=== PATIENT | female | born 1980 | race Caucasian/White ===

== ENCOUNTER 2017-05-09 23:09 | Emergency (ER) | payer MEDICARE, MEDICAID ==
[~2017-05-09] VITALS: Ht 152.4 cm; Wt 36.4 kg
[2017-05-09] MEDS ORDERED: TETRABENAZINE12.5 MG PO (23:17)
[2017-05-09] MEDS ORDERED: ZOLOFT 100MG100 MG (23:18)
[2017-05-09] MEDS ORDERED: ATIVAN1 M1 PO (23:18)
[2017-05-09] MEDS ORDERED: LAMICTAL 25MG T25 MG PO (23:20)
[2017-05-10 02:54] VITALS: BP 108/66
== END 2017-05-10 02:54 | disposition home or self-care (01) ==
LOC: ED 23:09
DX: G10 Huntington's disease (principal); Z91.81 History of falling; T42.6X6A Underdosing of other antiepileptic and sedative-hypnotic drugs, initial encounter; Z91.128 Patient's intentional underdosing of medication regimen for other reason
CPT/HCPCS: J2060

== ENCOUNTER 2017-10-31 12:36 | Emergency (ER) | payer MEDICARE, MEDICAID ==
[~2017-10-31] VITALS: Wt 38.1 kg
[~2017-10-31 12:36] MED LIST: ATIVAN1 M1 PO; LAMICTAL 25MG T25 MG PO; TETRABENAZINE12.5 MG PO; ZOLOFT 100MG100 MG
[2017-10-31] MEDS ORDERED: AUSTEDO9 MG PO (13:11)
[2017-10-31] MEDS ORDERED: MIRTAZAPINE30 MG PO (13:11)
[2017-10-31] MEDS ORDERED: LORAZEPAM0.5 M1 PO (13:11)
[2017-10-31] MEDS ORDERED: PROTONIX TR40 M1 PO (13:12)
[2017-10-31] MEDS ORDERED: SERTRALINE HYD100 MG PO (13:12)
[2017-10-31] MEDS ORDERED: QUETIAPINE FUMA25 M2 PO (13:12)
[2017-10-31 14:07] LABS: EOS # 0.2 (0.04-0.40); EOS % 2.5 % (1.0-5.0); HEMATOCRIT 37.5 % (37.0-47.0); HEMOGLOBIN 12.7 g/dL (12.5-16.0); LYMPH# 2.3 (1.50-4.00); MEAN CELL VOLUME 87 fl (78-100); MEAN CORPUSCULAR HEMOGLOBIN 30 pg (27-31); MEAN CORPUSCULAR HGB CONC 34 g/dL (33-37); MEAN PLATELET VOLUME 10.7 fl (7.4-10.4); MONO # 0.6 (0.20-0.80); NEU # 4.8 (1.40-6.50); PLATELET COUNT 235 K/mm3 (130-400); RED BLOOD COUNT 4.29 M/mm3 (4.10-5.30); RED CELL DISTRIBUTION WIDTH 13.1 % (11.5-14.5)
[2017-10-31 14:19] LABS: ALBUMIN 4.1 g/dL (3.5-5.0); BUN/CREATININE RATIO 23.5 (6.0-26.0); CALCIUM 9.1 mg/dL (8.4-10.2); POTASSIUM 3.5 mmol/L (3.6-5.0); TOTAL BILIRUBIN 0.5 mg/dL (0.2-1.3); TOTAL PROTEIN 7.1 g/dL (6.3-8.2)
[2017-10-31 14:32] LABS: PH-URINE 6.5 (5.0 - 8.0); URINE APPEARANCE CLEAR; URINE BILIRUBIN NEGATIVE (NEGATIVE); URINE BLOOD NEGATIVE (NEGATIVE); URINE COLOR YELLOW; URINE GLUCOSE NEGATIVE (NEGATIVE); URINE KETONE NEGATIVE (NEGATIVE); URINE LEUKOCYTE ESTERASE NEGATIVE (NEGATIVE); URINE NITRATE NEGATIVE (NEGATIVE); URINE PROTEIN(semi-quant) TRACE mg/dL (NEGATIVE); URINE UROBILINOGEN NORMAL (NORMAL)
[2017-10-31] MEDS ORDERED: RT ALBUTEROL CC18 GM IH (16:05)
[2017-10-31] MEDS ORDERED: SUNMARK S NS (16:05)
[2017-10-31 16:20] VITALS: BP 188/87
== END 2017-10-31 16:20 | disposition home or self-care (01) ==
LOC: ED 12:36
PROVIDERS: Physician Assistant
DX: R10.9 Unspecified abdominal pain (principal); G10 Huntington's disease; F32.9 Major depressive disorder, single episode, unspecified; R63.6 Underweight; F17.210 Nicotine dependence, cigarettes, uncomplicated; R19.7 Diarrhea, unspecified; E87.6 Hypokalemia; R06.00 Dyspnea, unspecified; R09.89 Other specified symptoms and signs involving the circulatory and respiratory systems

== ENCOUNTER 2017-11-18 12:30 | Emergency (ER) | payer MEDICARE, MEDICAID ==
[~2017-11-18] VITALS: Wt 40.4 kg
[~2017-11-18 12:30] MED LIST changes: +AUSTEDO9 MG PO; +LORAZEPAM0.5 M1 PO; +MIRTAZAPINE30 MG PO; +PROTONIX TR40 M1 PO; +QUETIAPINE FUMA25 M2 PO; +RT ALBUTEROL CC18 GM IH; +SERTRALINE HYD100 MG PO; +SUNMARK S NS
[2017-11-18] MEDS ORDERED: HYDROCODON-ACET15 ML PO (12:45)
[2017-11-18] MEDS ORDERED: ATIVAN0.5 MG PO (12:46)
[2017-11-18] MEDS ORDERED: AUSTEDO9 MG PO (12:47)
[2017-11-18] MEDS ORDERED: ZOFRAN4 M2 PO (12:48)
[2017-11-18 13:28] LABS: HEMATOCRIT 34.9 % (37.0-47.0); HEMOGLOBIN 11.6 g/dL (12.5-16.0); MEAN CELL VOLUME 89 fl (78-100); MEAN CORPUSCULAR HEMOGLOBIN 30 pg (27-31); MEAN CORPUSCULAR HGB CONC 33 g/dL (33-37); MEAN PLATELET VOLUME 11.3 fl (7.4-10.4); PLATELET COUNT 215 K/mm3 (130-400); RED BLOOD COUNT 3.93 M/mm3 (4.10-5.30); RED CELL DISTRIBUTION WIDTH 13.7 % (11.5-14.5); WHITE BLOOD COUNT 6.6 K/mm3 (4.8-10.8)
[2017-11-18 13:43] LABS: BUN/CREATININE RATIO 18.9 (6.0-26.0); CALCIUM 9.5 mg/dL (8.4-10.2); POTASSIUM 3.8 mmol/L (3.6-5.0); TOTAL BILIRUBIN 0.7 mg/dL (0.2-1.3)
[2017-11-18 13:44] LABS: BAND 1 % (0-10); LYMPHOCYTE 6 % (20-51); MONOCYTE 7 % (3-10); NEUTROPHILS 86 % (42-75)
[2017-11-18 13:54] LABS: URINE APPEARANCE CLEAR; URINE COLOR YELLOW; URINE PROTEIN(semi-quant) NEGATIVE (NEGATIVE)
[2017-11-18 13:55] LABS: URINE BILIRUBIN NEGATIVE (NEGATIVE); URINE BLOOD NEGATIVE (NEGATIVE); URINE GLUCOSE NEGATIVE (NEGATIVE); URINE KETONE NEGATIVE (NEGATIVE); URINE LEUKOCYTE ESTERASE NEGATIVE (NEGATIVE); URINE NITRATE NEGATIVE (NEGATIVE); URINE UROBILINOGEN NORMAL (NORMAL); URINE WBC 0-1 /hpf (0-3)
[2017-11-18] MEDS ORDERED: ZOFRAN ODT4 MG PO (15:19)
[2017-11-18] MEDS ORDERED: AMOXIL500 M1 PO (15:19)
[2017-11-18] MEDS ORDERED: TYLENOL 325MG325 MG PO (15:19)
[2017-11-18 15:38] VITALS: BP 123/47
== END 2017-11-18 16:17 | disposition home or self-care (01) ==
LOC: ED 12:30
PROVIDERS: Physician Assistant
DX: K52.9 Noninfective gastroenteritis and colitis, unspecified (principal); F41.9 Anxiety disorder, unspecified; G10 Huntington's disease; F32.9 Major depressive disorder, single episode, unspecified; R63.6 Underweight; K08.9 Disorder of teeth and supporting structures, unspecified
CPT/HCPCS: A4353; J2405; J7120

== ENCOUNTER 2017-11-30 09:13 | Emergency (ER) | payer MEDICARE, MEDICAID ==
[~2017-11-30 09:13] MED LIST changes: +AMOXIL500 M1 PO; +ATIVAN0.5 MG PO; +HYDROCODON-ACET15 ML PO; +TYLENOL 325MG325 MG PO; +ZOFRAN ODT4 MG PO; +ZOFRAN4 M2 PO
[2017-11-30] MEDS ORDERED: ZOLOFT 100MG100 MG PO (10:54)
[2017-11-30] MEDS ORDERED: SEROQUEL 2525 MG/TAB PO (10:55)
[2017-11-30] MEDS ORDERED: CHILD IBUP100 MG/5 M PO (10:56)
[2017-11-30] MEDS ORDERED: BENADRYL PO (10:56)
[2017-11-30] MEDS ORDERED: ALBUTEROL S5 MG/1 ML IH (11:02)
[2017-11-30] MEDS ORDERED: RT ALBUTEROL CC18 GM IH (11:03)
[2017-11-30 12:58] VITALS: BP 128/60
== END 2017-11-30 13:07 | disposition home or self-care (01) ==
LOC: ED 09:13
DX: S01.81XA Laceration without foreign body of other part of head, initial encounter (principal); W18.30XA Fall on same level, unspecified, initial encounter; Y92.009 Unspecified place in unspecified non-institutional (private) residence as the place of occurrence of the external cause; G10 Huntington's disease; K08.89 Other specified disorders of teeth and supporting structures; S00.212A Abrasion of left eyelid and periocular area, initial encounter; S00.12XA Contusion of left eyelid and periocular area, initial encounter; K21.9 Gastro-esophageal reflux disease without esophagitis; Z23 Encounter for immunization; R45.86 Emotional lability
CPT/HCPCS: 90715; A4550; J2060

== ENCOUNTER 2018-04-22 01:10 | Emergency (ER) | payer MEDICARE, MEDICAID ==
[~2018-04-22] VITALS: Ht 154.9 cm; Wt 40.9 kg
[~2018-04-22 01:10] MED LIST changes: +ALBUTEROL S5 MG/1 ML IH; +BENADRYL PO; +CHILD IBUP100 MG/5 M PO; +SEROQUEL 2525 MG/TAB PO; +ZOLOFT 100MG100 MG PO
[2018-04-22] MEDS ORDERED: DULOXETINE60 MG PO (01:23)
[2018-04-22] MEDS ORDERED: MIRTAZAPINE30 M1 PO (01:30)
[2018-04-22 02:37] VITALS: BP 111/68
== END 2018-04-22 02:37 | disposition home or self-care (01) ==
LOC: ED 01:10
DX: R14.0 Abdominal distension (gaseous) (principal); R10.84 Generalized abdominal pain; G10 Huntington's disease; F17.200 Nicotine dependence, unspecified, uncomplicated

== ENCOUNTER 2018-06-19 18:58 | Emergency (ER) | payer MEDICARE, MEDICAID ==
[~2018-06-19 18:58] MED LIST changes: +DULOXETINE60 MG PO; +MIRTAZAPINE30 M1 PO
[2018-06-19 20:03] LABS: EOS # 0.2 (0.04-0.40); EOS % 2.4 % (1.0-5.0); HEMATOCRIT 38.2 % (37.0-47.0); HEMOGLOBIN 12.9 g/dL (12.5-16.0); LYMPH# 2.8 (1.50-4.00); MEAN CELL VOLUME 89 fl (78-100); MEAN CORPUSCULAR HEMOGLOBIN 30 pg (27-31); MEAN CORPUSCULAR HGB CONC 34 g/dL (33-37); MEAN PLATELET VOLUME 11.7 fl (7.4-10.4); MONO # 0.6 (0.20-0.80); NEU # 4.5 (1.40-6.50); PLATELET COUNT 193 K/mm3 (130-400); RED BLOOD COUNT 4.28 M/mm3 (4.10-5.30); RED CELL DISTRIBUTION WIDTH 12.6 % (11.5-14.5); WHITE BLOOD COUNT 8.2 K/mm3 (4.8-10.8)
[2018-06-19 20:06] LABS: BUN/CREATININE RATIO 42.4 (6.0-26.0); CALCIUM 8.8 mg/dL (8.4-10.2); POTASSIUM 3.4 mmol/L (3.6-5.0); TOTAL BILIRUBIN 0.2 mg/dL (0.2-1.3); TOTAL PROTEIN 7.2 g/dL (6.3-8.2)
[2018-06-19] MEDS ORDERED: CETIRIZINE HCL10 MG PO (20:53)
[2018-06-19] MEDS ORDERED: FLUTICASON0.05 MG/AC NS (20:53)
[2018-06-19] MEDS ORDERED: PRILOSEC 20MG20 MG PO (21:10)
[2018-06-19] MEDS ORDERED: ATIVAN0.5 MG PO ×2 (21:10→21:11)
[2018-06-19] MEDS ORDERED: AUSTEDO9 MG PO (21:10)
[2018-06-19] MEDS ORDERED: CYMBALTA60 M1 PO (21:11)
[2018-06-19] MEDS ORDERED: REMERON15 MG PO (21:11)
[2018-06-19] MEDS ORDERED: ABILIFY5 MG PO (21:12)
[2018-06-19] MEDS ORDERED: GAS RELIEF80 MG PO (21:13)
[2018-06-19] MEDS ORDERED: ZOFRAN4 M2 PO (21:15)
[2018-06-19] MEDS ORDERED: CHILDREN'S160 MG/15 PO (21:16)
[2018-06-19] MEDS ORDERED: BENADRYL ALLERG25 M1 PO (21:16)
[2018-06-19] MEDS ORDERED: ALBUTEROL1.25 MG/3 IH (21:17)
[2018-06-19] MEDS ORDERED: RT ALBUTEROL CC18 GM IH (21:17)
[2018-06-19] MEDS ORDERED: SODIUM CHLORIDE NAS (21:18)
[2018-06-19] MEDS ORDERED: MOTRIN SUSP20 MG/ML PO (21:19)
[2018-06-19] MEDS ORDERED: COLACE100 M1 PO (21:20)
[2018-06-19] MEDS ORDERED: HYDROCODONE-AC118 ML PO (21:20)
[2018-06-19] MEDS ORDERED: MIRALAX17 GM PO (21:21)
[2018-06-19 22:25] VITALS: BP 142/76
== END 2018-06-19 22:25 | disposition home or self-care (01) ==
LOC: ED 18:58
PROVIDERS: Family Medicine
DX: J30.2 Other seasonal allergic rhinitis (principal); G10 Huntington's disease; Z79.899 Other long term (current) drug therapy

== ENCOUNTER 2018-11-18 18:45 | Emergency (ER) | payer MEDICARE, MEDICAID ==
[~2018-11-18 18:45] MED LIST changes: +ABILIFY5 MG PO; +ALBUTEROL1.25 MG/3 IH; +BENADRYL ALLERG25 M1 PO; +CETIRIZINE HCL10 MG PO; +CHILDREN'S160 MG/15 PO; +COLACE100 M1 PO; +CYMBALTA60 M1 PO; +FLUTICASON0.05 MG/AC NS; +GAS RELIEF80 MG PO; +HYDROCODONE-AC118 ML PO; +MIRALAX17 GM PO; +MOTRIN SUSP20 MG/ML PO; +PRILOSEC 20MG20 MG PO; +REMERON15 MG PO; +SODIUM CHLORIDE NAS
[2018-11-18 19:53] LABS: EOS # 0.4 (0.04-0.40); EOS % 4.9 % (1.0-5.0); HEMATOCRIT 35.7 % (37.0-47.0); HEMOGLOBIN 11.4 g/dL (12.5-16.0); LYMPH# 2.2 (1.50-4.00); MEAN CELL VOLUME 94 fl (78-100); MEAN CORPUSCULAR HEMOGLOBIN 30 pg (27-31); MEAN CORPUSCULAR HGB CONC 32 g/dL (33-37); MEAN PLATELET VOLUME 11.1 fl (7.4-10.4); MONO # 0.7 (0.20-0.80); NEU # 4.3 (1.40-6.50); PLATELET COUNT 292 K/mm3 (130-400); RED BLOOD COUNT 3.81 M/mm3 (4.10-5.30); RED CELL DISTRIBUTION WIDTH 12.5 % (11.5-14.5); WHITE BLOOD COUNT 7.5 K/mm3 (4.8-10.8)
[2018-11-18] MEDS ORDERED: CLINDAMYCIN 300MG PO (20:03)
[2018-11-18] MEDS ORDERED: CHANTIX 1MG1 MG PO (20:06)
[2018-11-18 20:09] LABS: ALBUMIN 3.7 g/dL (3.5-5.0); CALCIUM 9.4 mg/dL (8.4-10.2); TOTAL BILIRUBIN 0.3 mg/dL (0.2-1.3); TOTAL PROTEIN 6.7 g/dL (6.3-8.2)
[2018-11-18 21:56] LABS: URINE APPEARANCE HAZY; URINE COLOR YELLOW
[2018-11-18 22:01] LABS: URINE BILIRUBIN NEGATIVE (NEGATIVE); URINE BLOOD NEGATIVE (NEGATIVE); URINE GLUCOSE NEGATIVE (NEGATIVE); URINE KETONE NEGATIVE (NEGATIVE); URINE LEUKOCYTE ESTERASE TRACE (NEGATIVE); URINE NITRATE NEGATIVE (NEGATIVE); URINE PROTEIN(semi-quant) TRACE mg/dL (NEGATIVE); URINE UROBILINOGEN NORMAL (NORMAL)
[2018-11-18 23:10] VITALS: BP 156/95
== END 2018-11-18 23:10 | disposition home or self-care (01) ==
LOC: ED 18:45
PROVIDERS: Physician Assistant
DX: E86.0 Dehydration (principal); K04.7 Periapical abscess without sinus; G10 Huntington's disease; Z87.891 Personal history of nicotine dependence; Z79.899 Other long term (current) drug therapy
CPT/HCPCS: J7030

== ENCOUNTER 2018-12-20 06:07 | Emergency (ER) | payer MEDICARE, MEDICAID ==
[~2018-12-20 06:07] MED LIST changes: +CHANTIX 1MG1 MG PO; +CLINDAMYCIN 300MG PO
[2018-12-20 06:08] VITALS: BP 122/70
[2018-12-20] MEDS ORDERED: NORCO 325 MG-51 TA1 PO (07:32)
== END 2018-12-20 09:15 | disposition home or self-care (01) ==
LOC: ED 06:07
DX: M54.5 Low back pain (principal); G10 Huntington's disease; Z87.891 Personal history of nicotine dependence

== ENCOUNTER 2019-02-07 14:28 | Emergency (ER) | payer MEDICARE, MEDICAID ==
[~2019-02-07] VITALS: Wt 40.0 kg
[~2019-02-07 14:28] MED LIST changes: +NORCO 325 MG-51 TA1 PO
[2019-02-07 14:29] VITALS: BP 118/83
== END 2019-02-07 16:09 | disposition home or self-care (01) ==
LOC: ED 14:28
DX: S01.01XA Laceration without foreign body of scalp, initial encounter (principal); S40.219A Abrasion of unspecified shoulder, initial encounter; G10 Huntington's disease; F17.210 Nicotine dependence, cigarettes, uncomplicated; Z23 Encounter for immunization; W01.190A Fall on same level from slipping, tripping and stumbling with subsequent striking against furniture, initial encounter; Y92.009 Unspecified place in unspecified non-institutional (private) residence as the place of occurrence of the external cause
CPT/HCPCS: 90714

== ENCOUNTER → 2019-03-08 | Outpatient (CLI) | payer MEDICARE, MEDICAID ==
[2019-02-07 14:29] VITALS: BP 118/83
== END ==
LOC: RAD 07:27
DX: R13.11 Dysphagia, oral phase (principal); R05 Cough; G10 Huntington's disease

== ENCOUNTER 2020-03-19 20:20 | Emergency (ER) | payer MEDICARE, MEDICAID ==
[2020-03-19] MEDS ORDERED: ZYRTEC10 M3 PO (20:31)
[2020-03-19] MEDS ORDERED: ZOFRAN4 M2 PO (20:32)
[2020-03-19] MEDS ORDERED: HYDROCODON-ACET15 ML PO (20:34)
[2020-03-19 21:30] VITALS: BP 125/78
== END 2020-03-19 21:30 | disposition home or self-care (01) ==
LOC: ED 20:20
DX: S01.81XA Laceration without foreign body of other part of head, initial encounter (principal); G10 Huntington's disease; W19.XXXA Unspecified fall, initial encounter; Y92.009 Unspecified place in unspecified non-institutional (private) residence as the place of occurrence of the external cause

== ENCOUNTER 2020-06-22 12:13 | Emergency (ER) | payer MEDICARE, MEDICAID ==
[~2020-06-22] VITALS: Ht 152.4 cm; Wt 0.1 kg
[~2020-06-22 12:13] MED LIST changes: +ZYRTEC10 M3 PO
[2020-06-22 12:55] LABS: HEMATOCRIT 43.3 % (37.0-47.0); HEMOGLOBIN 13.2 g/dL (12.5-16.0); MEAN CELL VOLUME 91 fl (78-100); MEAN CORPUSCULAR HEMOGLOBIN 28 pg (27-31); MEAN CORPUSCULAR HGB CONC 31 g/dL (33-37); MEAN PLATELET VOLUME 11.2 fl (7.4-10.4); PLATELET COUNT 336 K/mm3 (130-400); RED BLOOD COUNT 4.77 M/mm3 (4.10-5.30); RED CELL DISTRIBUTION WIDTH 15.7 % (11.5-14.5); WHITE BLOOD COUNT 13.3 K/mm3 (4.8-10.8)
[2020-06-22 13:05] LABS: BAND 1 % (0-10); LYMPHOCYTE 10 % (20-51); MONOCYTE 6 % (3-10); NEUTROPHILS 84 % (42-75); POTASSIUM 4.5 mmol/L (3.5-5.1)
[2020-06-22 13:07] LABS: CALCIUM 9.6 mg/dL (8.3-10.5)
[2020-06-22 13:08] LABS: TOTAL PROTEIN 8.4 g/dL (6.4-8.3)
[2020-06-22 13:10] LABS: TOTAL BILIRUBIN 0.8 mg/dL (0.2-1.2)
[2020-06-22 13:40] LABS: LIPASE 11 U/L (8-78)
[2020-06-22 13:44] LABS: URINE APPEARANCE HAZY; URINE COLOR AMBER
[2020-06-22 13:45] LABS: URINE BILIRUBIN NEGATIVE (NEGATIVE); URINE BLOOD 50 ery/uL (NEGATIVE); URINE GLUCOSE NEGATIVE (NEGATIVE); URINE KETONE 2+ (NEGATIVE); URINE LEUKOCYTE ESTERASE 1+ (NEGATIVE); URINE NITRATE POSITIVE (NEGATIVE); URINE PROTEIN(semi-quant) 1+ mg/dL (NEGATIVE); URINE UROBILINOGEN NORMAL (NORMAL); URINE WBC >50 /hpf (0-3)
[2020-06-22] MEDS ORDERED: ZYPREXA2.5 M1 PO ×2 (13:57→13:58)
[2020-06-22] MEDS ORDERED: NORCO 325 MG-51 TA1 PO (13:59)
[2020-06-22] MEDS ORDERED: ATIVAN0.5 MG PO (14:01)
[2020-06-22] MEDS ORDERED: IMODIUM A-D2 M2 PO (14:02)
[2020-06-22 14:03] LABS: ERYTHROCYTE SEDIMENTATION RATE 45 mm/hr (0-20)
[2020-06-22 16:58] VITALS: BP 108/56
== END 2020-06-22 16:45 | disposition other institution (70) ==
LOC: ED 12:13
PROVIDERS: Nurse Practitioner Family
DX: G10 Huntington's disease (principal); A41.9 Sepsis, unspecified organism; N39.0 Urinary tract infection, site not specified; E86.0 Dehydration; E87.0 Hyperosmolality and hypernatremia
CPT/HCPCS: J0295; J2060; J7030; J7070

== ENCOUNTER 2020-06-22 15:03 | Inpatient (IN) | payer MEDICARE, MEDICAID ==
[~2020-06-22] VITALS: Ht 152.4 cm; Wt 35.1 kg
[~2020-06-22 15:03] MED LIST changes: +IMODIUM A-D2 M2 PO; +ZYPREXA2.5 M1 PO
[2020-06-22 17:02] VITALS: BP 129/60
[2020-06-22 18:51] LABS: CALCIUM 8.3 mg/dL (8.3-10.5)
[2020-06-22 21:34] VITALS: BP 114/65
[2020-06-23 02:37] VITALS: BP 105/67
[2020-06-23 05:58] VITALS: BP 113/70
[2020-06-23 08:07] LABS: EOS # 0.1 (0.04-0.40); EOS % 0.7 % (1.0-5.0); HEMATOCRIT 32.8 % (37.0-47.0); LYMPH# 2.1 (1.50-4.00); MEAN CELL VOLUME 92 fl (78-100); MEAN CORPUSCULAR HEMOGLOBIN 28 pg (27-31); MEAN CORPUSCULAR HGB CONC 31 g/dL (33-37); MEAN PLATELET VOLUME 10.8 fl (7.4-10.4); MONO # 0.5 (0.20-0.80); NEU # 5.7 (1.40-6.50); PLATELET COUNT 197 K/mm3 (130-400); RED BLOOD COUNT 3.55 M/mm3 (4.10-5.30); WHITE BLOOD COUNT 8.5 K/mm3 (4.8-10.8)
[2020-06-23 08:10] LABS: POTASSIUM 3.1 mmol/L (3.5-5.1)
[2020-06-23 10:20] VITALS: BP 96/52
[2020-06-23 18:45] VITALS: BP 118/62
[2020-06-23 22:46] VITALS: BP 105/65
[2020-06-24 01:30] VITALS: BP 113/63
[2020-06-24 06:19] VITALS: BP 142/83
[2020-06-24 07:32] LABS: POTASSIUM 3.5 mmol/L (3.5-5.1)
[2020-06-24 07:34] LABS: CALCIUM 7.9 mg/dL (8.3-10.5)
[2020-06-24 11:15] VITALS: BP 108/62
[2020-06-24] MEDS ORDERED: SEPTRA DS 8001 TAB PO (12:54)
== END 2020-06-24 13:46 | disposition home health service (06) | DRG 690 ==
LOC: MED/SURG 15:03
PROVIDERS: Nurse Practitioner Primary Care; ADMIT Nurse Practitioner Family
DX: N39.0 Urinary tract infection, site not specified (principal); G10 Huntington's disease; E87.0 Hyperosmolality and hypernatremia; F32.9 Major depressive disorder, single episode, unspecified; R13.10 Dysphagia, unspecified; E86.0 Dehydration; G89.29 Other chronic pain; M54.9 Dorsalgia, unspecified; Z79.891 Long term (current) use of opiate analgesic; Z87.891 Personal history of nicotine dependence
CPT/HCPCS: J1650; J2543; J7070